=== PATIENT | male | born 1930 | race Caucasian/White ===

== ENCOUNTER 2017-09-21 11:56 | Emergency (ER) | payer OTHER ==
[2017-09-21 12:16] VITALS: BMI 16.1
--- NOTE | 2017-09-21 13:16 | PDOC ---
History of Present Illness - General History Source: Patient Exam Limitations: No Limitations - History of Present Illness Initial Comments: 09/21/17 13:35 The patient is an 87 year old male with history of chronic lower back pain secondary to herniated discs sent to the ED by his PCP for approximately 3-4 weeks of bilateral lower extremity swelling and pain. He describes his pain as sharp, intermittent, and worst at the calves and shins. He states his symptoms are worse at night. No chest pain or shortness of breath. No nausea, vomiting, or diaphoresis. No fever or chills. No numbness or tingling. PCP: Dr. Roland Johns <Annalisa Edgar - Last Filed: 09/21/17 13:46> <Christiano Hernandez - Last Filed: 09/22/17 10:00> <Bess Rayo - Last Filed: 09/24/17 18:27> - General Chief Complaint: Pain, Acute Stated Complaint: LEG PAIN Time Seen by Provider: 09/21/17 12:04 Past History <Annalisa Edgar - Last Filed: 09/21/17 13:46> <Christiano Hernandez - Last Filed: 09/22/17 10:00> - Past Medical History COPD: No Other medical history: pt. is poor historian - Immunization History Immunization Up to Date: Yes - Suicide/Smoking/Psychosocial Hx Smoking History: Former smoker Have you smoked in the past 12 months: No Information on smoking cessation initiated: No Hx Alcohol Use: No Drug/Substance Use Hx: No <Bess Rayo - Last Filed: 09/24/17 18:27> - Past Medical History Allergies/Adverse Reactions: Allergies Allergy/AdvReac Type Severity Reaction Status Date / Time No Known Allergies Allergy Verified 09/21/17 12:16 Home Medications: Ambulatory Orders Unobtainable [Unobtainable] 09/21/17 Review of Systems - Review of Systems Able to Perform ROS?: Yes Comments:: 09/21/17 13:43 GENERAL/CONSTITUTIONAL: No fever or chills. No weakness. HEAD, EYES, EARS, NOSE AND THROAT: No change in vision. No ear pain or discharge. No sore throat. CARDIOVASCULAR: Bilateral lower extremity swelling. No chest pain or shortness of breath. RESPIRATORY: No cough, wheezing, or hemoptysis. GASTROINTESTINAL: No nausea, vomiting, diarrhea or constipation. GENITOURINARY: No dysuria, frequency, or change in urination. MUSCULOSKELETAL: Bilateral lower extremity pain. No neck or back pain. SKIN: No rash NEUROLOGIC: No headache, vertigo, loss of consciousness, or change in strength/ sensation. ENDOCRINE: No increased thirst. No abnormal weight change. HEMATOLOGIC/LYMPHATIC: No anemia, easy bleeding, or history of blood clots. ALLERGIC/IMMUNOLOGIC: No hives or skin allergy. <Annalisa Edgar - Last Filed: 09/21/17 13:46> *Physical Exam - Vital Signs Last Vital Signs Temp Pulse Resp BP Pulse Ox 98.2 F 74 18 142/70 98 09/21/17 12:11 09/21/17 12:11 09/21/17 12:11 09/21/17 12:11 09/21/17 12:11 <Annalisa Edgar - Last Filed: 09/21/17 13:46> - Vital Signs Last Vital Signs Temp Pulse Resp BP Pulse Ox 98.2 F 64 18 154/75 99 09/21/17 12:11 09/21/17 18:03 09/21/17 18:03 09/21/17 18:03 09/21/17 18:03 <Christiano Hernandez - Last Filed: 09/22/17 10:00> - Vital Signs Last Vital Signs Temp Pulse Resp BP Pulse Ox 98.2 F 74 18 142/70 98 09/21/17 12:11 09/21/17 12:11 09/21/17 12:11 09/21/17 12:11 09/21/17 12:11 - Physical Exam Comments: GENERAL: Awake, alert, and fully oriented, in no acute distress HEAD: No signs of trauma EYES: PERRLA, EOMI, sclera anicteric, conjunctiva clear ENT: Auricles normal inspection, hearing grossly normal, nares patent, oropharynx clear without exudates. Moist mucosa NECK: Normal ROM, supple, no lymphadenopathy, JVD, or masses LUNGS: Breath sounds equal, clear to auscultation bilaterally. No wheezes, and no crackles HEART: Regular rate and rhythm, normal S1 and S2, no murmurs, rubs or gallops ABDOMEN: Soft, nontender, normoactive bowel sounds. No guarding, no rebound. No masses EXTREMITIES: Normal range of motion, 2+ edema to BLE, to level of knees. No clubbing or cyanosis. No cords, erythema, or tenderness NEUROLOGICAL: Cranial nerves II through XII grossly intact. Normal speech, normal gait SKIN: Warm, Dry, normal turgor, no rashes or lesions noted. <Bess Rayo - Last Filed: 09/24/17 18:27> Heart Score/ECG Review - ECG Impressions Comment:: EKG read 14:29- NSR 67 bpm, no acute ST/T changes; +Q waves inf leads, V5 and V6 <Bess Rayo - Last Filed: 09/24/17 18:27> ED Treatment Course - LABORATORY CBC & Chemistry Diagram: 09/21/17 13:27 09/21/17 13:27 <Annalisa Edgar - Last Filed: 09/21/17 13:46> - LABORATORY CBC & Chemistry Diagram: 09/21/17 13:27 09/21/17 14:51 - ADDITIONAL ORDERS Additional order review: 09/21/17 13:27 RBC 3.95 L MCV 99.0 H MCHC 33.1 RDW 14.9 MPV 8.4 Neutrophils % 77.2 Lymphocytes % 16.0 Monocytes % 5.1 Eosinophils % 1.1 Basophils % 0.6 <Christiano Hernandez - Last Filed: 09/22/17 10:00> - LABORATORY CBC & Chemistry Diagram: 09/21/17 13:27 09/21/17 14:51 <Bess Rayo - Last Filed: 09/24/17 18:27> Medical Decision Making - Medical Decision Making 09/21/17 16:[address] Hernandez at shift change. Awaiting BNP, CMP. If wnl, will DC home. <Bess Rayo - Last Filed: 09/24/17 18:27> *DC/Admit/Observation/Transfer - Attestations Scribe Attestion: 09/21/17 13:44 Documentation prepared by Annalisa Edgar, acting as medical esthetician for Bess Rayo MD. <Annalisa Edgar - Last Filed: 09/21/17 13:46> <Christiano Hernandez - Last Filed: 09/22/17 10:00> <Bess Rayo - Last Filed: 09/24/17 18:27> Diagnosis at time of Disposition: Lower extremity edema - Discharge Dispostion Disposition: HOME Condition at time of disposition: Stable - Referrals Referrals: Roland Johns MD [Primary Care Provider] - - Patient Instructions Printed Discharge Instructions: DI for Peripheral Edema -- Bilateral - Post Discharge Activity
[2017-09-21 13:48] LABS: BASO % 0.6 % (0-2.0); EOS % 1.1 % (0-4.5); HEMATOCRIT 39.1 % (35.4-49); HEMOGLOBIN 12.9 GM/dL (11.7-16.9); MCH 32.8 pg (25.7-33.7); MCHC 33.1 g/dl (32.0-35.9); MEAN PLT VOLUME 8.4 fl (7.5-11.1); MONO % 5.1 % (3.8-10.2); NEUT % 77.2 % (42.8-82.8); PLATELET COUNT 168 K/MM3 (134-434); RBC 3.95 M/mm3 (4.00-5.60); RDW 14.9 % (11.9-15.9); WHITE BLOOD COUNT 5.6 K/mm3 (4.0-10.0)
--- NOTE | 2017-09-21 16:23 | EKG ---
Test Reason : Blood Pressure : / mmHG Vent. Rate : 067 BPM Atrial Rate : 067 BPM P-R Int : 200 ms QRS Dur : 086 ms QT Int : 400 ms P-R-T Axes : 081 074 086 degrees QTc Int : 422 ms NORMAL SINUS RHYTHM NORMAL ECG WHEN COMPARED WITH ECG OF 22-JAN-2005 14:22, NO SIGNIFICANT CHANGE WAS FOUND Confirmed by MD HERO, STEFANY ([id number]) on 09/21/2017 4:22:42 PM Referred By: Confirmed By:STEFANY MONAHAN MD
[2017-09-21 16:41] LABS: ANION GAP 6 (8-16); BILIRUBIN,TOTAL 0.2 mg/dL (0.2-1.0); BLOOD UREA NITROGEN 18 mg/dL (7-18); CALCIUM 7.7 mg/dL (8.5-10.1); CHLORIDE 105 mmol/L (98-107); CO2 28 mmol/L (21-32); CREATININE 0.7 mg/dL (0.7-1.3); GLUCOSE,RANDOM 73 mg/dL (74-106); POTASSIUM 4.3 mmol/L (3.5-5.1); SGOT/AST 33 U/L (15-37); SGPT/ALT 27 U/L (12-78); SODIUM 139 mmol/L (136-145); TOT PROT 6.2 g/dl (6.4-8.2)
[2017-09-21 16:43] LABS: ALK PHOS 100 U/L (45-117); N-TERMINAL BNP 341.12 pg/ml (5-450)
[2017-09-22 11:44] VITALS: BP 159/74; PULSE 70; TEMP 98
== END 2017-09-22 12:15 | disposition home or self-care (01) ==
LOC: JER 11:56
DX: R60.0 Localized edema (principal); Z87.891 Personal history of nicotine dependence
CPT/HCPCS: 36415; 80053; 82550; 82553; 83880; 84484; 85025; 93005; 93010; 93970-TC; 99283-25

== ENCOUNTER 2017-11-12 11:29 | Inpatient (IN) | payer OTHER ==
--- NOTE | 2017-11-12 11:54 | PDOC ---
History of Present Illness - General Chief Complaint: Injury Stated Complaint: FALL Time Seen by Provider: 11/12/17 11:53 - History of Present Illness Initial Comments: 11/12/17 12:33 The patient is an 87 year old who is unaware of any PMH who presents for evaluation of left hip pain following a fall. The patient reports that he slipped 1 week ago while with his home health aid and fell onto his left hip with immediate pain. He denies head trauma, LOC, chest pain, palpitations at the time of the event, but notes he has been unable to ambulate since the fall prompting his presentation to the ED for evaluation. He otherwise denies fevers , chills, SOB, chest pain, abdominal pain, nausea, vomiting, or changes with urination or bowel movements. Past History - Past Medical History Allergies/Adverse Reactions: Allergies Allergy/AdvReac Type Severity Reaction Status Date / Time No Known Allergies Allergy Verified 09/21/17 12:16 Home Medications: Ambulatory Orders Unobtainable [Unobtainable] 09/21/17 COPD: No - Surgical History Cardiac Surgery: No Gastric Stapling: No Neurologic Surgery: No - Immunization History Immunization Up to Date: Yes - Suicide/Smoking/Psychosocial Hx Smoking History: Unknown if ever smoked Have you smoked in the past 12 months: No Information on smoking cessation initiated: No Hx Alcohol Use: No Drug/Substance Use Hx: No Review of Systems - Review of Systems Comments:: 11/12/17 12:42 Constitutional: No fevers, chills, fatigue, malaise HEENT: No Rhinorrhea, nasal congestion, visual changes Cardiovascular: No chest pain, syncope, palpitations, lightheadedness Respiratory: No Cough, SOB, Hemoptysis, Gastrointestinal: No Abdominal pain, Nausea, Vomiting, Constipation, Diarrhea, Melena Genitourinary: No Dysuria, Frequency, Urgency, Hesitancy, Hematuria, Flank pain Musculoskeletal: Left Hip Pain. No Myalgia, arthralgia Skin: No rashes, itching, bruising, pallor Neurologic: No Headache, Dizziness, Numbness, Weakness, or Tingling Psychiatric: No Hallucinations. No SI or HI *Physical Exam - Vital Signs Last Vital Signs Temp Pulse Resp BP Pulse Ox 98.9 F 82 16 137/68 98 11/12/17 11:39 11/12/17 11:39 11/12/17 11:39 11/12/17 11:39 11/12/17 11:39 - Physical Exam Comments: 11/12/17 12:43 General Appearance: Nourished. No Apparent Distress HEENT: EOMI, NAH. No obvious signs of head trauma. No Pharyngeal Erythema, Tonsillar Exudate, Tonsillar Erythema Neck: No Cervical Lymphadenopathy or C-spine Tenderness Respiratory/Chest: Lungs Clear, Normal Breath Sounds. No Crackles, Rales, Rhonchi, Wheezing Cardiovascular: Regular Rhythm, Regular Rate. No Murmur, Gallops, Rubs Gastrointestinal/Abdominal: Normal Bowel Sounds, Soft. No Guarding, Rebound, Tenderness Musculoskeletal: No CVA Tenderness Extremity: Left Lower Extremity is Shortened and Externally Rotated with notable eccymohsis to the inner aspect of the left thigh and tenderness to palpation along the left hip. 2+ dp pulses distally bilaterally with sensation to light touch and temperature intact bilaterally. Normal Capillary Refill Integumentary: Normal Color, Dry, Warm Neurologic: movie machine operator II-XII NML intact, Fully Oriented, Alert, Normal Mood/Affect, Normal Response, Motor Strength 5/5. ED Treatment Course - LABORATORY CBC & Chemistry Diagram: 11/12/17 12:00 11/12/17 12:00 Medical Decision Making - Medical Decision Making 11/12/17 12:45 The patient is an 87 year old who is unaware of any PMH who presents for evaluation of left hip pain following a fall. Differential includes but is not limited to: Fracture, Dislocation, Intracranial process, Contusion, ACS, Infectious, Metabolic Derangement. Given the patient's physical exam, it is possible the patient has a left hip fracture. Given that the patient is somewhat a poor historian, we will obtain a cbc, cmp, coags, troponin, ekg, chest plain film, head ct, hip and pelvis plain film to evaluate further. We will treat the patient's pain with morphine in the meantime and continue to monitor and reassess while here in the ED. 11/12/17 17:06 CBC, cmp, troponin, coags are unremarkable. head CT is unremarkable as read by our radiologist. Plain film of the patient's hip demonstrates an comminuted intratrochanteric fracture of the left hip as read by our radiologist. We discussed the case with the orthopedist team who will come evaluate the patient. We discussed the case with the hospitalist team who accepted the patient for admission. *DC/Admit/Observation/Transfer Diagnosis at time of Disposition: Closed left hip fracture Qualifiers: Encounter type: initial encounter Qualified Code(s): S72.002A - Fracture of unspecified part of neck of left femur, initial encounter for closed fracture - Discharge Dispostion Condition at time of disposition: Stable Admit: Yes - Referrals - Patient Instructions - Post Discharge Activity
--- NOTE | 2017-11-12 12:15 | PDOC ---
Attending Attestation - HPI HPI: 11/12/17 12:26 The patient is a 87 year old male, with no significant PMH, who presents to the emergency department for evaluation s/p witnessed fall 1 week ago. The patient states he has a lot of work being done in his apartment and he slipped on dust last Wednesday (1 week ago), witnessed by the home health aide, landing on his left hip. The patient denies any head strike/injury or loss of consciousness. The patient denies any preceding chest pain, shortness of breath, nausea, lightheadedness or blurry vision. The patient states he has not been able to ambulate since the fall. The patient states he only has the left hip pain when he is moving. The patient states his home health aide prompted him to come to the ED today. The patient denies chest pain, shortness of breath, headache and dizziness. Denies neck pain, back pain, bowel or bladder incontinence. Denies numbness, tingling, or loss of sensation. Denies fever, chills, nausea, vomit, diarrhea and constipation. Denies dysuria, frequency, urgency and hematuria. Allergies: NKA - Physicial Exam PE: 11/12/17 14:23 Vitals: Triage vital signs reviewed General Appearance: No acute distress, well nourished, well developed Head: Atraumatic Eyes: Pupils equal reactive round, extraocular movement intact Ears: TM's normal bilaterally Nose: Nares patent bilaterally; no nasal congestion Throat: Posterior oropharynx without erythema, mucous membranes moist Neck: Supple; No nuchal rigidity Chest Wall: Nontender Cardiac: Regular rate and rhythm, no murmurs, no rubs, no gallops Lungs: Clear to auscultation bilateral, good air movement bilaterally Abdomen: Soft, nondistended, normal bowel sounds, nontender to palpation Rectal: Exam deferred Extremities: (+) Left hip tenderness to palpation. No cyanosis, clubbing, or edema. Skin: Warm and dry, no rashes or lesions, no rash, no petechiae Neuro: AOX3; Cranial Nerves 2-12 grossly intact, Strength intact to all extremities, Sensation intact to all extremities. Psych: Normal mood, normal affect - Medical Decision Making 11/12/17 12:28 The patient is a 87 year old male, with no significant PMH, who presents to the emergency department for evaluation s/p witnessed fall 1 week ago. Plan: Labs, EKG, Head CT without contrast, Medications, Chest x-ray, left hip and pelvis x-ray Documentation prepared by Geremias Turcios, acting as medical record specialist for Dyllan Noel MD. <Geremias Turcios - Last Filed: 11/12/17 14:23> - Resident Resident Name: Jerrod Jiménezel - ED Attending Attestation I have performed the following: I have examined & evaluated the patient, The case was reviewed & discussed with the resident, I agree w/resident's findings & plan, Exceptions are as noted - Medical Decision Making Left comminuted displaced intertrochanteric hip fracture. Orthopedic aware. Patient made nothing by mouth. IV pain medicines given. We will admit to medicine for further management preoperative clearance prior to surgery. <Dyllan Noel - Last Filed: 11/12/17 16:14>
[2017-11-12] MEDS ORDERED: morphine CARPU-JECT 4 MG/1 ML DISP.SYRIN IVPUSH ONE (12:18)
[2017-11-12] MEDS ORDERED: morphine CARPU-JECT 2 MG/1 ML DISP.SYRIN IM ONE (12:32)
[2017-11-12] MEDS ORDERED: morphine SULFATE 4 MG/ML VIAL ONE (12:36)
[2017-11-12 13:16] LABS: BASO % 0.5 % (0-2.0); EOS % 1.5 % (0-4.5); HEMATOCRIT 31.5 % (35.4-49); HEMOGLOBIN 10.5 GM/dL (11.7-16.9); LYMPH % 15.3 % (8-40); MCH 33.6 pg (25.7-33.7); MCHC 33.4 g/dl (32.0-35.9); MEAN CELL VOLUME 100.8 fl (80-96); MEAN PLT VOLUME 8.3 fl (7.5-11.1); NEUT % 75.7 % (42.8-82.8); PLATELET COUNT 163 K/MM3 (134-434); RBC 3.12 M/mm3 (4.00-5.60); RDW 15.1 % (11.9-15.9); WHITE BLOOD COUNT 5.8 K/mm3 (4.0-10.0)
[2017-11-12 13:30] LABS: INR 1.1 (0.82-1.09); PROTHROMBIN TIME (PATIENT) 12.4 SEC (9.7-13.0)
[2017-11-12 13:43] LABS: ALBUMIN 2.7 g/dl (3.4-5.0); ANION GAP 6 (8-16); BILIRUBIN,TOTAL 0.4 mg/dL (0.2-1.0); BLOOD UREA NITROGEN 20 mg/dL (7-18); CHLORIDE 107 mmol/L (98-107); CO2 29 mmol/L (21-32); CREATININE 0.6 mg/dL (0.7-1.3); GLUCOSE,RANDOM 98 mg/dL (74-106); POTASSIUM 4.8 mmol/L (3.5-5.1); SGOT/AST 35 U/L (15-37); SGPT/ALT 26 U/L (12-78); SODIUM 142 mmol/L (136-145); TOT PROT 6.2 g/dl (6.4-8.2)
[2017-11-12 13:46] LABS: ALK PHOS 82 U/L (45-117)
[2017-11-12] MEDS ORDERED: SODIUM CHLORIDE 1,000 ML IV SCH (14:30)
--- NOTE | 2017-11-12 14:58 | CONSULT ---
Consult - text type - Consultation Consultation Note: FULL CONSULT DICTATED IMP: LEFT IT HIP FX PLAN: PATIENT REFUSES SURGERY FOR NOW
--- NOTE | 2017-11-12 15:14 | HP ---
CHIEF COMPLAINT: left hip pain PCP: none Important phone numbers of home care agency staff [facility] Lian Owens, social work program coordinator [phone] Ritika, Primary nurse at [facility] [phone]. HISTORY OF PRESENT ILLNESS: Patient is an 87 year old cachectic male with no reported past medical history. He presents to the ED for left hip pain after a mechanical fall one week ago on WednesdayNovember 05. at his home residence. The patient reports that he tripped and fell and landed on his left hip. This fall was witnessed by his home health aide. Patient denies any chest pain, dizziness or shortness of breath prior to falling. Since that time, patient has been bed bound and refusing to come to the ER for evaluation. Today, the left hip pain became so severe and at the repeated request of his INKER MACHINE and home care agency, patient came to the ER. Patient denies any head trauma or LOC. On exam, patient is laying in the bed, in no acute distress. He states his left hip only hurts with movement. In the last week, he has been bedbound, and unable to perform any ADLs secondary to his left hip pain. He is under the service of [facility] who was present at the bedside when I evaluated the patient. Dr. Flynn and patient's primary RN were also present. We spoke to the patient and made him aware that his left hip is fracture and in need of surgical repair today. Patient is refusing surgical repair of his left hip at this time. He has adamantly refused despite speaking with the entire team at the bedside. Patient is mostly french speaking and I attempted to speak to him in french to assure him that the surgery was necessary and will help him eventually ambulate as he us unable to currently do so. He continues to refuse and became agitated at myself and others. I have asked the patient to reconsider surgery, possibly for Wednesday. ER course was notable for: (1) left hip fracture (2) EKG NSR (3) trop 0.02 PAST MEDICAL HISTORY: denies PAST SURGICAL HISTORY: denies Social History: Smoking: n/a Alcohol: n/a Drugs: n/a Family History: Allergies No Known Allergies Allergy (Verified 09/21/17 12:16) HOME MEDICATIONS: Home Medications Medication Instructions Recorded Unobtainable [Unobtainable] 09/21/17 PHYSICAL EXAMINATION Vital Signs - 24 hr 11/12/17 11/12/17 11:39 14:57 Temperature 98.9 F 98.2 F Pulse Rate 82 Pulse Rate [ 86 Left Apical] Respiratory 16 16 Rate Blood Pressure 137/68 Blood Pressure 145/83 [Left Arm] O2 Sat by Pulse 98 98 Oximetry (%) GENERAL: Awake, alert, and fully oriented, in no acute distress, french speaking only HEAD: Normal with no signs of trauma. EYES: Pupils equal, round and reactive to light, extraocular movements intact, sclera anicteric, conjunctiva clear. No lid lag. EARS, NOSE, THROAT: Ears normal, nares patent, oropharynx clear without exudates. Moist mucous membranes. NECK: Normal range of motion, supple without lymphadenopathy, JVD, or masses. LUNGS: Breath sounds equal, clear to auscultation bilaterally. No wheezes, and no crackles. No accessory muscle use. HEART: Regular rate and rhythm, normal S1 and S2 without murmur, rub or gallop. ABDOMEN: Soft, nontender, not distended, normoactive bowel sounds, no guarding, no rebound, no masses. No hepatomegaly or splenomegaly. MUSCULOSKELETAL: Normal range of motion at all joints. No bony deformities or tenderness. No CVA tenderness. UPPER EXTREMITIES: No clubbing. No peripheral edema. LOWER EXTREMITIES: No peripheral edema, left hip with external rotation NEUROLOGICAL: Normal speech. Laboratory Results - last 24 hr 11/12/17 11/12/17 11/12/17 12:00 12:00 12:00 WBC 5.8 RBC 3.12 L D Hgb 10.5 L D Hct 31.5 L D MCV 100.8 H MCH 33.6 MCHC 33.4 RDW 15.1 Plt Count 163 MPV 8.3 Neutrophils % 75.7 Lymphocytes % 15.3 Monocytes % 7.0 Eosinophils % 1.5 Basophils % 0.5 PT with INR 12.40 INR 1.10 Sodium 142 Potassium 4.8 Chloride 107 Carbon Dioxide 29 Anion Gap 6 L BUN 20 H Creatinine 0.6 L Creat Clearance w eGFR > 60 Random Glucose 98 D Calcium 8.0 L Total Bilirubin 0.4 D AST 35 ALT 26 Alkaline Phosphatase 82 Creatine Kinase 234 Creatine Kinase Index 1.2 CK-MB (CK-2) 2.865 Troponin I 0.02 Total Protein 6.2 L Albumin 2.7 L ASSESSMENT/PLAN: Patient is an 87 year old cachectic male with no reported past medical history. He presents to the ED for left hip pain after a mechanical fall one week ago on WednesdayNovember 05. at his home residence. The patient reports that he tripped and fell and landed on his left hip. This fall was witnessed by his home health aide. Patient denies any chest pain, dizziness or shortness of breath prior to falling. Since that time, patient has been bed bound and refusing to come to the ER for evaluation. Today, the left hip pain became so severe and at the repeated request of his INKER MACHINE and home care agency, patient came to the ER. Patient denies any head trauma or LOC. On exam, patient is laying in the bed, in no acute distress. He states his left hip only hurts with movement. In the last week, he has been bedbound, and unable to perform any ADLs secondary to his left hip pain. He is under the service of [facility] who was present at the bedside when I evaluated the patient. Dr. Flynn and patient's primary RN were also present. We spoke to the patient and made him aware that his left hip is fracture and in need of surgical repair today. Patient is refusing surgical repair of his left hip at this time. He has adamantly refused despite speaking with the entire team at the bedside. Patient is mostly french speaking and I attempted to speak to him in french to assure him that the surgery was necessary and will help him eventually ambulate as he us unable to currently do so. He continues to refuse and became agitated at myself and others. I have asked the patient to reconsider surgery, possibly for Wednesday. Ortho: Left hip fracture s/p fall Patient refusing surgical repair at this time Manage pain with Morphine prn Heparin TID Ortho following, possible surgery on Wednesday if patient consents PT evaluation once cleared by ortho Bowel regimen F.E.N. Fluids: NS @ 100cc/hr Electrolytes: monitor Nutrition: regular diet, RD consult for cachexia Prophylaxis DVT: Heparin TID GI: Protonix daily Disposition: full code Hospitalist Screening - Colonoscopy Questionnaire Colonoscopy Questionnaire: Colonoscopy Questionnaire
--- NOTE | 2017-11-12 15:58 | CONS ---
DATE OF CONSULTATION: 11/12/2017 ORTHOPEDICS CONSULTATION/[facility] HISTORY OF PRESENT ILLNESS: Patient is an 87-year-old male status post fall 1 week ago and found by forensic social worker on the floor on Wednesday. Patient refused to come to the emergency room, was put into bed, finally forensic social worker were able to convince him that he needs to come to the hospital, and an ambulance brought him to the hospital. The patient has no family. No significant past medical history as reported by forensic social worker patient services representative. PHYSICAL EXAMINATION: Patient has an externally rotated left leg with marked increased pain with range of motion of the hip, good range of motion in the ankle and toes. X-rays taken in the emergency room show a left intratrochanteric hip fracture. IMPRESSION: Left intratrochanteric hip fracture. Risks, benefits, and alternatives discussed with patient . Patient adamantly refuses that surgery. I tested him to the best of my ability if he is alert and oriented, and on my exam he is, and though adamantly refuses to have operative intervention. Therefore at this time cancelled the surgery that we were about to do for him, the OR had been prepared and ready to go today have the surgery before the weekend. Patient wants to think about it for a few days and make a decision. follow him closely over the next few days and treat him accordingly. ANDREAS CHANG M.D. [id number]
[2017-11-12] MEDS ORDERED: morphine SULFATE 4 MG/ML VIAL IVPUSH PRN (16:24)
[2017-11-12 18:23] VITALS: BMI 16.9
[2017-11-12] MEDS: HEPARIN NA (PORCINE) 5,000 UNITS/ML 1ML VIAL SQ SCH (21:23)
[2017-11-12] MEDS: DOCUSATE SODIUM 100 MG CAPSULE (FP) PO SCH (21:24)
[2017-11-13] MEDS: DOCUSATE SODIUM 100 MG CAPSULE (FP) PO SCH ×3 (06:04→21:40)
[2017-11-13] MEDS: HEPARIN NA (PORCINE) 5,000 UNITS/ML 1ML VIAL SQ SCH ×2 (09:57→21:40)
[2017-11-13 10:02] LABS: HEMATOCRIT 31.1 % (35.4-49); HEMOGLOBIN 10.5 GM/dL (11.7-16.9); MCH 33.9 pg (25.7-33.7); MCHC 33.8 g/dl (32.0-35.9); MEAN CELL VOLUME 100.2 fl (80-96); MEAN PLT VOLUME 8.9 fl (7.5-11.1); PLATELET COUNT 168 K/MM3 (134-434); RDW 14.8 % (11.9-15.9); WHITE BLOOD COUNT 5.3 K/mm3 (4.0-10.0)
--- NOTE | 2017-11-13 11:37 | PN ---
Physical Exam: SUBJECTIVE: Patient seen and examined at the bedside. He is Guamanian speaking primarily. Tells me he does NOT want to have his left hip repaired. States that he has had surgery of his left hip in the past with pins and has had a bad experience with anesthesia. Does not fully elaborate on what happened with anesthesia but states he had severe hiccups afterward. Again, spoke to him about the importance of having left hip repair so that he can mobilize again and not be in pain. He is adamantly refusing. He is alert and oriented x 3, has decisional capacity. Tells me that I cannot make him get surgery, and he is correct, I cannot. I can only advise him to do what is best so that he can ambulate. Told him I want the best for him, and not here to pressure him or make him do something that he does not want to. I do strongly recommend surgery but he is refusing to consent. OBJECTIVE: Vital Signs Period Temp Pulse Resp BP Sys/Iglesias Pulse Ox Last 24 Hr 98.2 F-99.1 F 60-86 16-20 114-145/53-83 97-98 GENERAL: Awake, alert, and fully oriented to person, place and time, in no acute distress, hungarian speaking only. HEAD: Normal with no signs of trauma. EYES: Pupils equal, round and reactive to light, extraocular movements intact, sclera anicteric, conjunctiva clear. No lid lag. EARS, NOSE, THROAT: Ears normal, nares patent, oropharynx clear without exudates. Moist mucous membranes. NECK: Normal range of motion, supple without lymphadenopathy, JVD, or masses. LUNGS: Breath sounds equal, clear to auscultation bilaterally. No wheezes, and no crackles. No accessory muscle use. HEART: Regular rate and rhythm, normal S1 and S2 without murmur, rub or gallop. ABDOMEN: Soft, nontender, not distended, normoactive bowel sounds, no guarding, no rebound, no masses. No hepatomegaly or splenomegaly. MUSCULOSKELETAL: Normal range of motion at all joints. No bony deformities or tenderness. No CVA tenderness. UPPER EXTREMITIES: No clubbing. No peripheral edema. LOWER EXTREMITIES: No peripheral edema, left hip with external rotation, painful to touch of left hip. NEUROLOGICAL: Normal speech Laboratory Results - last 24 hr 11/12/17 11/12/17 11/12/17 12:00 12:00 12:00 WBC 5.8 RBC 3.12 L D Hgb 10.5 L D Hct 31.5 L D MCV 100.8 H MCH 33.6 MCHC 33.4 RDW 15.1 Plt Count 163 MPV 8.3 Neutrophils % 75.7 Lymphocytes % 15.3 Monocytes % 7.0 Eosinophils % 1.5 Basophils % 0.5 PT with INR 12.40 INR 1.10 Sodium 142 Potassium 4.8 Chloride 107 Carbon Dioxide 29 Anion Gap 6 L BUN 20 H Creatinine 0.6 L Creat Clearance w eGFR > 60 Random Glucose 98 D Hemoglobin A1c % Calcium 8.0 L Total Bilirubin 0.4 D AST 35 ALT 26 Alkaline Phosphatase 82 Creatine Kinase 234 Creatine Kinase Index 1.2 CK-MB (CK-2) 2.865 Troponin I 0.02 Total Protein 6.2 L Albumin 2.7 L Blood Type Antibody Screen 11/12/17 11/12/17 11/12/17 15:00 15:00 20:20 WBC RBC Hgb Hct MCV MCH MCHC RDW Plt Count MPV Neutrophils % Lymphocytes % Monocytes % Eosinophils % Basophils % PT with INR INR Sodium Potassium Chloride Carbon Dioxide Anion Gap BUN Creatinine Creat Clearance w eGFR Random Glucose Hemoglobin A1c % Calcium Total Bilirubin AST ALT Alkaline Phosphatase Creatine Kinase 242 Creatine Kinase Index 1.4 CK-MB (CK-2) 3.444 Troponin I < 0.02 Total Protein Albumin Blood Type A POSITIVE Antibody Screen Negative 11/13/17 11/13/17 11/13/17 07:35 09:50 09:50 WBC 5.3 RBC 3.10 L Hgb 10.5 L Hct 31.1 L MCV 100.2 H MCH 33.9 H MCHC 33.8 RDW 14.8 Plt Count 168 MPV 8.9 Neutrophils % Lymphocytes % Monocytes % Eosinophils % Basophils % PT with INR INR Sodium Potassium Chloride Carbon Dioxide Anion Gap BUN Creatinine Creat Clearance w eGFR Random Glucose Hemoglobin A1c % 5.5 Calcium Total Bilirubin AST ALT Alkaline Phosphatase Creatine Kinase Creatine Kinase Index CK-MB (CK-2) Troponin I < 0.02 Total Protein Albumin Blood Type Antibody Screen Active Medications Generic Name Dose Route Start Last Admin Trade Name Freq PRN Reason Stop Dose Admin Acetaminophen 650 mg 11/12/17 16:59 Tylenol - PO Q6H PRN PAIN LEVEL 4 - 6 Docusate Sodium 100 mg 11/12/17 22:00 11/13/17 06:04 Colace - PO 100 mg TID BALJINDER Administration Heparin Sodium (Porcine) 5,000 unit 11/12/17 22:00 11/13/17 09:57 Heparin - SQ 5,000 unit BID BALJINDER Administration Sodium Chloride 1,000 mls @ 75 mls/hr 11/12/17 14:30 11/12/17 14:35 Normal Saline - IV 75 mls/hr ASDIR BALJINDER Administration Lidocaine 1 patch 11/13/17 11:45 Lidoderm Patch - TP DAILY BALJINDER Miscellaneous 1 each 11/13/17 22:00 Lidoderm Patch Removal MC DAILY@2200 BALJINDER Morphine Sulfate 2 mg 11/12/17 16:24 Morphine Sulfate IVPUSH Q4H PRN PAIN LEVEL 7 - 10 ASSESSMENT/PLAN: Patient is an 87 year old cachectic male with no reported past medical history. He presents to the ED for left hip pain after a mechanical fall one week ago on WednesdayNovember 05. at his home residence. The patient reports that he tripped and fell and landed on his left hip. This fall was witnessed by his home health aide. Patient denies any chest pain, dizziness or shortness of breath prior to falling. Since that time, patient has been bed bound and refusing to come to the ER for evaluation. He presented to the ED on 11/12/2017 after the left hip pain became so severe and at the repeated request of his INSTRUCTIONAL TECHNOLOGY SPECIALIST. Patient denies any head trauma or LOC. On exam, patient is laying in the bed, in no acute distress. He states his left hip only hurts with movement. In the last week, he has been bedbound, and unable to perform any ADLs secondary to his left hip pain. Ortho: Left hip fracture s/p fall Patient refusing surgical repair at this time Manage pain with Morphine prn Lidoderm patch to left hip Heparin TID Ortho following, possible surgery on Wednesday if patient consents PT evaluation once cleared by ortho Bowel regimen F.E.N. Fluids: tolerating PO Electrolytes: monitor Nutrition: regular diet, RD consult for cachexia Prophylaxis DVT: Heparin TID GI: Protonix daily Important phone numbers of home care agency staff [facility] Home Care Lian Owens, 7th grade social studies teacher [phone] Ritika, Primary nurse at [facility] [phone]. Disposition: full code Visit type - Emergency Visit Emergency Visit: Yes ED Registration Date: 11/12/17 Care time: The patient presented to the Emergency Department on the above date and was hospitalized for further evaluation of their emergent condition. - New Patient This patient is new to me today: No - Critical Care Critical Care patient: No - Discharge Referral Referred to [facility] No
[2017-11-13 12:00] LABS: ALBUMIN 2.6 g/dl (3.4-5.0); ANION GAP 8 (8-16); BILIRUBIN,TOTAL 0.4 mg/dL (0.2-1.0); BLOOD UREA NITROGEN 19 mg/dL (7-18); CALCIUM 7.8 mg/dL (8.5-10.1); CHLORIDE 106 mmol/L (98-107); CO2 27 mmol/L (21-32); CREATININE 0.7 mg/dL (0.7-1.3); GLUCOSE,RANDOM 94 mg/dL (74-106); POTASSIUM 4.7 mmol/L (3.5-5.1); SGOT/AST 30 U/L (15-37); SGPT/ALT 24 U/L (12-78); SODIUM 141 mmol/L (136-145); TOT PROT 5.9 g/dl (6.4-8.2)
[2017-11-13 12:01] LABS: ALK PHOS 83 U/L (45-117)
[2017-11-13 12:41] LABS: CHOLESTEROL 114 mg/dL (50-200); HDL CHOLESTEROL 46 mg/dL (40-60); TRIGLYCERIDES 60 mg/dL (35-160)
--- NOTE | 2017-11-13 13:19 | PN ---
Progress Note (short form) - Note Progress Note: Ortho Pt seen and examined s/p left IT fx. still deciding if he would like to proceed with surgery PE- + ttp, LLE shortened and ER, decr rom secondary to pain, nvi a/p NWB Pt needs to decide if he wants surgery Please notify us if he wishes to have surgery otherwise pt can be d/c'd d/w Dr. Flynn
[2017-11-13] MEDS: LIDOCAINE 5% TOPICAL PATCH TP SCH (13:30)
--- NOTE | 2017-11-13 14:37 | EKG ---
Test Reason : Blood Pressure : / mmHG Vent. Rate : 077 BPM Atrial Rate : 077 BPM P-R Int : 188 ms QRS Dur : 082 ms QT Int : 358 ms P-R-T Axes : 088 069 086 degrees QTc Int : 405 ms NORMAL SINUS RHYTHM NORMAL ECG WHEN COMPARED WITH ECG OF 21-SEP-2017 14:16, T WAVE INVERSION NO LONGER EVIDENT IN ANTERIOR LEADS Confirmed by MD Ronaldo, Jeffrey ([id number]) on 11/13/2017 2:36:47 PM Referred By: Confirmed By:Jeffrey Higgins MD
[2017-11-13 17:37] LABS: URINE APPEARANCE CLEAR; URINE BILIRUBIN NEGATIVE (<2.0 mg/dL); URINE COLOR STRAW; URINE GLUCOSE (UA) NEGATIVE (NEGATIVE); URINE KETONE NEGATIVE (NEGATIVE); URINE LEUK ESTERASE NEGATIVE (NEGATIVE); URINE NITRITE NEGATIVE (NEGATIVE); URINE PROTEIN NEGATIVE (NEGATIVE); URINE UROBILINOGEN NEGATIVE mg/dL (0.2-1.0)
[2017-11-13] MEDS: LIDOCAINE PATCH REMOVAL MC SCH (21:41)
[2017-11-14] MEDS: DOCUSATE SODIUM 100 MG CAPSULE (FP) PO SCH ×3 (06:03→22:49)
[2017-11-14 09:58] LABS: BASO % 0.5 % (0-2.0); EOS % 1.4 % (0-4.5); HEMATOCRIT 35.6 % (35.4-49); LYMPH % 20.2 % (8-40); MCH 33.7 pg (25.7-33.7); MCHC 33.7 g/dl (32.0-35.9); MEAN CELL VOLUME 99.9 fl (80-96); MEAN PLT VOLUME 8.2 fl (7.5-11.1); MONO % 5.8 % (3.8-10.2); NEUT % 72.1 % (42.8-82.8); PLATELET COUNT 209 K/MM3 (134-434); RBC 3.56 M/mm3 (4.00-5.60); RDW 14.6 % (11.9-15.9); WHITE BLOOD COUNT 6.6 K/mm3 (4.0-10.0)
[2017-11-14 10:05] LABS: ALBUMIN 2.7 g/dl (3.4-5.0); ANION GAP 5 (8-16); BILIRUBIN,TOTAL 0.6 mg/dL (0.2-1.0); BLOOD UREA NITROGEN 16 mg/dL (7-18); CALCIUM 7.9 mg/dL (8.5-10.1); CHLORIDE 104 mmol/L (98-107); CO2 30 mmol/L (21-32); CREATININE 0.6 mg/dL (0.7-1.3); GLUCOSE,RANDOM 90 mg/dL (74-106); MAGNESIUM 2.1 mg/dL (1.8-2.4); SGOT/AST 30 U/L (15-37); SGPT/ALT 24 U/L (12-78); SODIUM 139 mmol/L (136-145); TOT PROT 6.6 g/dl (6.4-8.2)
[2017-11-14 10:06] LABS: ALK PHOS 109 U/L (45-117)
[2017-11-14] MEDS: HEPARIN NA (PORCINE) 5,000 UNITS/ML 1ML VIAL SQ SCH ×2 (10:10→22:49)
[2017-11-14] MEDS: LIDOCAINE 5% TOPICAL PATCH TP SCH (10:10)
[2017-11-14] MEDS: ACETAMINOPHEN 325 MG TABLET (FP) PO PRN ×2 (10:11→22:49)
--- NOTE | 2017-11-14 14:28 | PN ---
Progress Note (short form) - Note Progress Note: Ortho Pt seen and examined s/p left IT fx. Pt is not consenting for surgery PE- + ttp, LLE shortened and ER, decr rom secondary to pain, nvi a/p NWB d/c from ortho pov since pt does not want to have surgery- Risks were explained in detail to the patient d/w Dr. Flynn
--- NOTE | 2017-11-14 18:50 | CON.PSY ---
Psychiatry Consult Chief Complaint: Asked to see to assist in his care with regard to pending surgery. History of Present Problem: Patient states that he is not having surgery but did not articulate why he is making that decision. Nor, was he able to say how he can benefit from this surgery. He is adamant about not having this surgery. - Reason for Previous Treatment Reason for Previous Treatment: Other (Frequent falls.) - Current Medications Current Medications: Active Medications Acetaminophen (Tylenol -) 650 mg PO Q6H PRN PRN Reason: PAIN LEVEL 4 - 6 Last Admin: 11/14/17 10:11 Dose: 650 mg Docusate Sodium (Colace -) 100 mg PO TID [facility] Last Admin: 11/14/17 14:35 Dose: Not Given Heparin Sodium (Porcine) (Heparin -) 5,000 unit SQ BID [facility] Last Admin: 11/14/17 10:10 Dose: 5,000 unit Lidocaine (Lidoderm Patch -) 1 patch TP DAILY [facility] Last Admin: 11/14/17 10:10 Dose: 1 patch Miscellaneous (Lidoderm Patch Removal) 1 each MC DAILY@2200 [facility] Last Admin: 11/13/17 21:41 Dose: 1 each Morphine Sulfate (Morphine Sulfate) 2 mg IVPUSH Q4H PRN PRN Reason: PAIN LEVEL 7 - 10 - Allergies Allergies: Allergies Allergy/AdvReac Type Severity Reaction Status Date / Time No Known Allergies Allergy Verified 09/21/17 12:16 - Current Living Status Usual Living Arrangement: Alone (with Home health healthcare management) - Current Mental Status Evaluation Appearance: Other (Appropriate for hospital setting) Attitude: Guarded - Affect Affect: Constrictive Appropriateness: Appropriate to Content - Mood Mood: Anxious, Irritable - Speech/Language Expressive: Talkative - Psychomotor Activity Psychomotor Activity: Normal - Thought Content Hallucinations: Absent Delusions: Absent - Self Perception Self Perception: No Impairment - Cognition Attention: Diminished Orientation: Time, Person, Place Memory, Short Term: 1/3 Memory, Remote with Promptin/3 (not cooperative with further exam) - Abstraction Judgement: Severely Impaired - Insight Insight: Impaired - Suicidal Ideation Suicidal Ideation: No - Homicidal Ideation Homicidal Ideation: No Assessment/Plan Patient was not cooperative during this interview capacity to make decisions at this time. During the interview, his thinking was disorganized with circumstantial disorganized speech. He lacks an understanding of his condition and the consequences of not having surgery. He could not tell me how he may benefit from the surgery. Based on the evaluation, he has diminished capacity at this time.
--- NOTE | 2017-11-14 19:16 | PN ---
Physical Exam: SUBJECTIVE: Patient seen and examined at the bedside. Both SW an process description writer met with patient and again went over the need for surgery, patient refusing. OBJECTIVE: As per psyche, patient has diminished capacity to make his own medical decisions. Vital Signs Period Temp Pulse Resp BP Sys/Iglesias Pulse Ox Last 24 Hr 98.1 F-98.9 F 61-81 18-20 100-136/59-68 97-98 GENERAL: Awake, alert, and fully oriented to person, place and time, in no acute distress, samoan speaking only. HEAD: Normal with no signs of trauma. EYES: Pupils equal, round and reactive to light, extraocular movements intact, sclera anicteric, conjunctiva clear. No lid lag. EARS, NOSE, THROAT: Ears normal, nares patent, oropharynx clear without exudates. Moist mucous membranes. NECK: Normal range of motion, supple without lymphadenopathy, JVD, or masses. LUNGS: Breath sounds equal, clear to auscultation bilaterally. No wheezes, and no crackles. No accessory muscle use. HEART: Regular rate and rhythm, normal S1 and S2 without murmur, rub or gallop. ABDOMEN: Soft, nontender, not distended, normoactive bowel sounds, no guarding, no rebound, no masses. No hepatomegaly or splenomegaly. MUSCULOSKELETAL: Normal range of motion at all joints. No bony deformities or tenderness. No CVA tenderness. UPPER EXTREMITIES: No clubbing. No peripheral edema. LOWER EXTREMITIES: No peripheral edema, left hip with external rotation, painful to touch of left hip. NEUROLOGICAL: Normal speech Laboratory Results - last 24 hr 11/14/17 11/14/17 09:15 09:15 WBC 6.6 RBC 3.56 L Hgb 12.0 D Hct 35.6 MCV 99.9 H MCH 33.7 MCHC 33.7 RDW 14.6 Plt Count 209 D MPV 8.2 Neutrophils % 72.1 Lymphocytes % 20.2 D Monocytes % 5.8 Eosinophils % 1.4 Basophils % 0.5 Sodium 139 Potassium 4.0 Chloride 104 Carbon Dioxide 30 Anion Gap 5 L BUN 16 Creatinine 0.6 L Creat Clearance w eGFR > 60 Random Glucose 90 Calcium 7.9 L Magnesium 2.1 Total Bilirubin 0.6 D AST 30 ALT 24 Alkaline Phosphatase 109 D Total Protein 6.6 Albumin 2.7 L Active Medications Generic Name Dose Route Start Last Admin Trade Name Freq PRN Reason Stop Dose Admin Acetaminophen 650 mg 11/12/17 16:59 11/14/17 10:11 Tylenol - PO 650 mg Q6H PRN Administration PAIN LEVEL 4 - 6 Docusate Sodium 100 mg 11/12/17 22:00 11/14/17 14:35 Colace - PO Not Given TID BALJINDER Heparin Sodium (Porcine) 5,000 unit 11/12/17 22:00 11/14/17 10:10 Heparin - SQ 5,000 unit BID BALJINDER Administration Lidocaine 1 patch 11/13/17 11:45 11/14/17 10:10 Lidoderm Patch - TP 1 patch DAILY BALJINDER Administration Miscellaneous 1 each 11/13/17 22:00 11/13/17 21:41 Lidoderm Patch Removal MC 1 each DAILY@2200 BALJINDER Administration Morphine Sulfate 2 mg 11/12/17 16:24 Morphine Sulfate IVPUSH Q4H PRN PAIN LEVEL 7 - 10 ASSESSMENT/PLAN: Patient is an 87 year old cachectic male with no reported past medical history. He presents to the ED for left hip pain after a mechanical fall one week ago on WednesdayNovember 05. at his home residence. The patient reports that he tripped and fell and landed on his left hip. This fall was witnessed by his home health aide. Patient denies any chest pain, dizziness or shortness of breath prior to falling. Since that time, patient has been bed bound and refusing to come to the ER for evaluation. He presented to the ED on 11/12/2017 after the left hip pain became so severe and at the repeated request of his COMPLEX COMMERCIAL LITIGATION PAR[place]GAL. Patient denies any head trauma or LOC. On exam, patient is laying in the bed, in no acute distress. He states his left hip only hurts with movement. In the last week, he has been bedbound, and unable to perform any ADLs secondary to his left hip pain. Ortho: Left hip fracture s/p fall Patient refusing surgical repair at this time Manage pain with Morphine prn Lidoderm patch to left hip Heparin TID Ortho following, possible surgery on Wednesday if patient consents, however, deemed to have diminished capacity by psyche. F.E.N. Fluids: tolerating PO Electrolytes: monitor Nutrition: regular diet, RD consult for cachexia Prophylaxis DVT: Heparin TID GI: Protonix daily Important phone numbers of home care agency staff [facility] Lian Owens, child protective services social worker [phone] Ritika, Primary nurse at [facility] [phone]. Disposition: full code Visit type - Emergency Visit Emergency Visit: Yes ED Registration Date: 11/12/17 Care time: The patient presented to the Emergency Department on the above date and was hospitalized for further evaluation of their emergent condition. - New Patient This patient is new to me today: No - Critical Care Critical Care patient: No - Discharge Referral Referred to [facility] No
[2017-11-14] MEDS: LIDOCAINE PATCH REMOVAL MC SCH (22:51)
[2017-11-15] MEDS: DOCUSATE SODIUM 100 MG CAPSULE (FP) PO SCH ×3 (06:36→21:18)
[2017-11-15] MEDS: ACETAMINOPHEN 325 MG TABLET (FP) PO PRN (06:36)
[2017-11-15] MEDS: LIDOCAINE 5% TOPICAL PATCH TP SCH (09:24)
[2017-11-15] MEDS: HEPARIN NA (PORCINE) 5,000 UNITS/ML 1ML VIAL SQ SCH ×2 (09:24→21:18)
--- NOTE | 2017-11-15 09:54 | PN ---
Physical Exam: SUBJECTIVE: Patient seen and examined at the bedside. States left hip pain is controlled at the moment. OBJECTIVE: I called patient's primary nurse (Ritika) under home care services ([facility] home care ) and updated her on patient's status. She provided me with a phone number of patient's daughter > Jelena Yoo [phone] I attempted to reach daughter at this number, but phone is disconnected. Patent has friend listed a person to contact on [employer] (Josephine Salomon [phone]), called phone no. and HiPPA compliant message left, awaiting call back Left message for dIris Shaffer, psyche practitioner who saw patient yesterday asking her to come re-evaluate patient, awaiting call back. Patient has been deemed to have diminished capacity on psyche eval. He continues to refuse surgery Vital Signs Period Temp Pulse Resp BP Sys/Iglesias Pulse Ox Last 24 Hr 98.0 F-98.9 F 66-84 18-20 100-137/59-68 96 GENERAL: Awake, alert, and fully oriented to person, place and time, in no acute distress, yoruba speaking only. HEAD: Normal with no signs of trauma. EYES: Pupils equal, round and reactive to light, extraocular movements intact, sclera anicteric, conjunctiva clear. No lid lag. EARS, NOSE, THROAT: Ears normal, nares patent, oropharynx clear without exudates. Moist mucous membranes. NECK: Normal range of motion, supple without lymphadenopathy, JVD, or masses. LUNGS: Breath sounds equal, clear to auscultation bilaterally. No wheezes, and no crackles. No accessory muscle use. HEART: Regular rate and rhythm, normal S1 and S2 without murmur, rub or gallop. ABDOMEN: Soft, nontender, not distended, normoactive bowel sounds, no guarding, no rebound, no masses. No hepatomegaly or splenomegaly. MUSCULOSKELETAL: Normal range of motion at all joints. No bony deformities or tenderness. No CVA tenderness. UPPER EXTREMITIES: No clubbing. No peripheral edema. LOWER EXTREMITIES: No peripheral edema, left hip with external rotation, painful to touch of left hip. NEUROLOGICAL: Normal speech Laboratory Results - last 24 hr 11/14/17 11/14/17 09:15 09:15 WBC 6.6 RBC 3.56 L Hgb 12.0 D Hct 35.6 MCV 99.9 H MCH 33.7 MCHC 33.7 RDW 14.6 Plt Count 209 D MPV 8.2 Neutrophils % 72.1 Lymphocytes % 20.2 D Monocytes % 5.8 Eosinophils % 1.4 Basophils % 0.5 Sodium 139 Potassium 4.0 Chloride 104 Carbon Dioxide 30 Anion Gap 5 L BUN 16 Creatinine 0.6 L Creat Clearance w eGFR > 60 Random Glucose 90 Calcium 7.9 L Magnesium 2.1 Total Bilirubin 0.6 D AST 30 ALT 24 Alkaline Phosphatase 109 D Total Protein 6.6 Albumin 2.7 L Active Medications Generic Name Dose Route Start Last Admin Trade Name Freq PRN Reason Stop Dose Admin Acetaminophen 650 mg 11/12/17 16:59 11/15/17 06:36 Tylenol - PO 650 mg Q6H PRN Administration PAIN LEVEL 4 - 6 Docusate Sodium 100 mg 11/12/17 22:00 11/15/17 06:36 Colace - PO 100 mg TID BALJINDER Administration Heparin Sodium (Porcine) 5,000 unit 11/12/17 22:00 11/15/17 09:24 Heparin - SQ 5,000 unit BID BALJINDER Administration Lidocaine 1 patch 11/13/17 11:45 11/15/17 09:24 Lidoderm Patch - TP 1 patch DAILY BALJINDER Administration Miscellaneous 1 each 11/13/17 22:00 11/14/17 22:51 Lidoderm Patch Removal MC 1 each DAILY@2200 BALJINDER Administration Morphine Sulfate 2 mg 11/12/17 16:24 Morphine Sulfate IVPUSH Q4H PRN PAIN LEVEL 7 - 10 ASSESSMENT/PLAN: Patient is an 87 year old cachectic male with no reported past medical history. He presents to the ED for left hip pain after a mechanical fall one week ago on WednesdayNovember 05. at his home residence. The patient reports that he tripped and fell and landed on his left hip. This fall was witnessed by his home health aide. Patient denies any chest pain, dizziness or shortness of breath prior to falling. Since that time, patient has been bed bound and refusing to come to the ER for evaluation. He presented to the ED on 11/12/2017 after the left hip pain became so severe and at the repeated request of his PAIN MANAGEMENT NURSE PRACTITIONER. Patient denies any head trauma or LOC. On exam, patient is laying in the bed, in no acute distress. He states his left hip only hurts with movement. In the last week, he has been bedbound, and unable to perform any ADLs secondary to his left hip pain. Imaging: Left Hip/xray: Comminuted left femoral fracture with various deformities Vascular Study 09/21/17: No DVT Chest Xray: Partial compression of thoracic vertebral bodies, unclear age Ortho: Left hip fracture s/p fall Left Hip/pelvis Xray shows comminuted left femoral fracture with various deformities Patient refusing surgical repair at this time Manage pain with Morphine prn Lidoderm patch to left hip daily Heparin TID Ortho following, possible surgery if patient consents, however, deemed to have diminished capacity by psyche. Ethics consulted Attempted to call family (information provided by [facility] home healthcare, but phone no. disconnected) Asking Psyche to re-evaluate patient, awaiting callback F.E.N. Fluids: tolerating PO Electrolytes: monitor Nutrition: regular diet, RD consult for cachexia Prophylaxis DVT: Heparin TID GI: Protonix daily Important phone numbers of home care agency staff [facility] Home Care Lian Owens, nursing home social worker [phone] Ritika, Primary nurse at [facility] [phone]. Disposition: full code Visit type - Emergency Visit Emergency Visit: Yes ED Registration Date: 11/12/17 Care time: The patient presented to the Emergency Department on the above date and was hospitalized for further evaluation of their emergent condition. - New Patient This patient is new to me today: No - Critical Care Critical Care patient: No - Discharge Referral Referred to [facility] No
--- NOTE | 2017-11-15 18:33 | PN ---
Progress Note (short form) - Note Progress Note: Patient was seen again this pm with Floor CHAIRMAN & CEO, Tyree, He again adamantly refuse surgery and today with Samoan speaking CHAIRMAN & CEO, Tyree, he was able to relate the risk of not walking again, blood clots and even eventual . Even so, he does not want surgery. Patient was deemed able and have the capacity to make this decision regarding Hip Surgery
[2017-11-15] MEDS: LIDOCAINE PATCH REMOVAL MC SCH (21:17)
[2017-11-16] MEDS ORDERED: ADENOSINE 6 MG/2 ML VIAL IVPUSH ONE (04:46)
--- NOTE | 2017-11-16 05:24 | HOSP ---
Subjective - Review of Symptoms Events since last encounter: called to see pt for HR 140s Subjective: pt denies chest pain, palpitations, trouble breathing. Physical Examination Vital Signs: Vital Signs Temperature 98 F 11/16/17 04:15 Pulse Rate 147 H 11/16/17 04:15 Respiratory Rate 20 11/16/17 04:15 Blood Pressure 115/67 11/16/17 04:15 O2 Sat by Pulse Oximetry (%) 96 11/14/17 21:00 Cardiovascular: Yes: Regular Rate and Rhythm, Tachycardia, S1, S2 Respiratory: Yes: CTA Bilaterally Gastrointestinal: Yes: Normal Bowel Sounds, Soft Edema: No Labs: CBC, BMP 11/14/17 09:15 11/14/17 09:15 Hospitalist Encounter Assessment: SVT - eCG revealed SVT rate 148 - adenosine 6mg given IVP - pt converted to sinus sandra initially then in NSR rate in 80s. NO acute ST/ T wave changes - cardiac profile added to am labs. - ? concern for PE although pt otherwise asymptomatic - cardiology consult - transfer to tele Critical Care Total Critical Care Time (in minutes): 35 Critical Care Statement: The care of this patient involved high complexity decision making to prevent further life threatening deterioration of the patient 's condition and/or to evaluate & treat vital organ system(s) failure or risk of failure.
[2017-11-16 06:58] LABS: BASO % 0.6 % (0-2.0); EOS % 1.3 % (0-4.5); HEMATOCRIT 36.4 % (35.4-49); HEMOGLOBIN 12.4 GM/dL (11.7-16.9); LYMPH % 17.5 % (8-40); MCHC 34.1 g/dl (32.0-35.9); MEAN CELL VOLUME 99.8 fl (80-96); MEAN PLT VOLUME 8.3 fl (7.5-11.1); MONO % 6.7 % (3.8-10.2); NEUT % 73.9 % (42.8-82.8); PLATELET COUNT 227 K/MM3 (134-434); RBC 3.65 M/mm3 (4.00-5.60); WHITE BLOOD COUNT 8.7 K/mm3 (4.0-10.0)
[2017-11-16 07:17] LABS: CHLORIDE 106 mmol/L (98-107); POTASSIUM 4.8 mmol/L (3.5-5.1); SODIUM 140 mmol/L (136-145)
[2017-11-16 07:22] LABS: ALBUMIN 2.7 g/dl (3.4-5.0); ALK PHOS 139 U/L (45-117); ANION GAP 5 (8-16); BILIRUBIN,TOTAL 0.4 mg/dL (0.2-1.0); BLOOD UREA NITROGEN 25 mg/dL (7-18); CALCIUM 8.1 mg/dL (8.5-10.1); CO2 29 mmol/L (21-32); CREATININE 0.6 mg/dL (0.7-1.3); GLUCOSE,RANDOM 84 mg/dL (74-106); MAGNESIUM 2.2 mg/dL (1.8-2.4); SGOT/AST 53 U/L (15-37); SGPT/ALT 35 U/L (12-78); TOT PROT 6.5 g/dl (6.4-8.2)
[2017-11-16] MEDS: DOCUSATE SODIUM 100 MG CAPSULE (FP) PO SCH ×3 (07:32→21:26)
[2017-11-16] MEDS: HEPARIN NA (PORCINE) 5,000 UNITS/ML 1ML VIAL SQ SCH ×3 (07:32→21:27)
--- NOTE | 2017-11-16 09:57 | EKG ---
Test Reason : Blood Pressure : / mmHG Vent. Rate : 083 BPM Atrial Rate : 083 BPM P-R Int : 184 ms QRS Dur : 066 ms QT Int : 342 ms P-R-T Axes : 069 060 082 degrees QTc Int : 401 ms POOR DATA QUALITY, INTERPRETATION MAY BE ADVERSELY AFFECTED NORMAL SINUS RHYTHM NORMAL ECG WHEN COMPARED WITH ECG OF 16-NOV-2017 05:03, QT HAS LENGTHENED Confirmed by MD Patrick, Torito ([id number]) on 11/16/2017 9:57:45 AM Referred By: ALYSIA Confirmed By:Torito Nguyen MD
--- NOTE | 2017-11-16 09:58 | EKG ---
Test Reason : Blood Pressure : / mmHG Vent. Rate : 142 BPM Atrial Rate : 115 BPM P-R Int : 000 ms QRS Dur : 074 ms QT Int : 284 ms P-R-T Axes : 000 068 091 degrees QTc Int : 436 ms POOR DATA QUALITY, INTERPRETATION MAY BE ADVERSELY AFFECTED SUPRAVENTRICULAR TACHYCARDIA NONSPECIFIC ST ABNORMALITY ABNORMAL ECG Confirmed by MD Patrick, Torito ([id number]) on 11/16/2017 9:58:23 AM Referred By: Confirmed By:Torito Nguyen MD
--- NOTE | 2017-11-16 11:11 | PN ---
Progress Note (short form) - Note Progress Note: Chief Complaint: Events noted, notes reviewed, complaining of left hip pain, denies any chest pain or dyspnea History of Present Illness: Seen and examined on telemetry. Full consult dictated Echocardiography today revealed normal LV size and function, AVS, dense MAC, mild MR, trace to mild TR with RVSP 32 mmHg - Current Medication List Current Medications: Current Medications Acetaminophen (Tylenol -) 650 mg PO Q6H PRN PRN Reason: PAIN LEVEL 4 - 6 Last Admin: 11/15/17 06:36 Dose: 650 mg Docusate Sodium (Colace -) 100 mg PO TID [facility] Last Admin: 11/16/17 07:32 Dose: 100 mg Heparin Sodium (Porcine) (Heparin -) 5,000 unit SQ TID [facility] Last Admin: 11/16/17 07:32 Dose: 5,000 unit Lidocaine (Lidoderm Patch -) 1 patch TP DAILY [facility] Last Admin: 11/15/17 09:24 Dose: 1 patch Miscellaneous (Lidoderm Patch Removal) 1 each MC DAILY@2200 [facility] Last Admin: 11/15/17 21:17 Dose: 1 each Morphine Sulfate (Morphine Sulfate) 2 mg IVPUSH Q4H PRN PRN Reason: PAIN LEVEL 7 - 10 Review of Systems: Constitutional: Denies fever or chills Head and Neck: Denies Headaches, photophobia or blurring of vision Respiratory: Denies cough or sputum production Cardiovascular: As noted above Gastrointestinal: Denies nausea, vomiting, diarrhea or abdominal discomfort Genitourinary: Denies frequency, hesitancy or urgency Musculoskeletal: As noted above Endocrine: No symptoms reported - Objective Vital Signs: Last Vital Signs Temp Pulse Resp BP Pulse Ox 98.0 F 86 20 111/61 96 11/16/17 06:01 11/16/17 06:01 11/16/17 06:01 11/16/17 06:01 11/14/17 21:00 Intake & Output 11/13/17 11/14/17 11/15/17 11/16/17 23:59 23:59 23:59 23:59 Intake Total 250 700 925 Output Total 1700 1900 1800 800 Balance -1450 -1200 -875 -800 Weight 98 lb 14 oz HEENT: Atraumatic, REID, EOMI Neck: Supple Negative JVD No Bruit Cardiovascular: S1 S2 Regular Rate and Rhythm Grade 1/6 LANETTE Respiratory: CTA Bilaterally Gastrointestinal: Soft Benign Normal Bowel Sounds Ext: Negative Edema Labs: CBC, BMP 11/16/17 06:28 11/16/17 06:28 Hepatic Panel Total Bilirubin 0.4 mg/dL (0.2-1.0) D 11/16/17 06:28 AST 53 U/L (15-37) H D 11/16/17 06:28 ALT 35 U/L (12-78) D 11/16/17 06:28 Alkaline Phosphatase 139 U/L (45-117) H D 11/16/17 06:28 Albumin 2.7 g/dl (3.4-5.0) L 11/16/17 06:28 INR, PTT INR 1.10 (0.82-1.09) 11/12/17 12:00 Assessment/Plan 1. 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 Mechanical fall post left inter-trochanteric fracture, declining surgical intervention 3. Pre-renal azotemia PLAN: 1. Recommend initiating B-Jose therapy with caution 2. Recommend ASA therapy, pending final decision regarding surgical intervention 3. Patient was advised that there are no absolute contraindications in proceeding with planned intervention (if patient is agreeable) considering that there is no evidence of ACS and/or de-compensated congestive heart failure and/ or malignant ventricular arrhythmia Blanca Allen MD
[2017-11-16] MEDS: LIDOCAINE 5% TOPICAL PATCH TP SCH (11:20)
--- NOTE | 2017-11-16 12:11 | PN ---
Progress Note (short form) - Note Progress Note: Ethics Patient with fall at home sustaining comminuted hip fracture for which surgery has been advised but the patient is continuing to refuse because of anesthesia fears and his age. Patient lives alone in a apartment on the first floor but there are steps to get into the building. He has a home child support case officer and home care manager rn who have been notified of his admission. The medical team has called for Psychiatry evaluation and LANGUAGE THERAPIST at first documented poor medical decision making but returned with Greek interpretation and deemed the patient has the medical capacity to make this decision. As the patient was already using a rolling walker at home and has a previous history of hip fracture, with the current finding of a comminuted fracture of the hip neck, it would seem unlikely he would even walk again without surgery. Also of note is the fact that with his advanced age of 87 years there may be surgical and anesthesia risks from a surgical procedure further amplified by his Acute SVT diagnosis today. Please note that even if he were considered not medically competent to make this decision he cannot be forced to undergo surgery if he continues to refuse surgery without a court order. I would have our social service attempt on their own to see if there are any family members to contact. One contact from the outside was not a working phone number. Upon my questioning him I am not certain if indeed he has had a or children.
--- NOTE | 2017-11-16 13:12 | CONS ---
DATE OF CONSULTATION: 11/16/2017 REQUESTING PHYSICIAN: Hospitalist. CHIEF COMPLAINT: Tachycardia, cardiovascular evaluation. History was obtained from the patient, an 87-year-old male of descent, with no significant past medical history, who denied hypertensive cardiovascular disease, diabetes mellitus, hypercholesterolemia, who was admitted to [facility] after sustaining a fall and was noted to have fracture of left femur; for which, surgical intervention was recommended but has not been performed as of yet. Patient this a.m. was noted to have tachycardia on physical examination. At which point, an electrocardiogram was performed which revealed evidence of supraventricular tachycardia that terminated post adenosine therapy administration. Patient had reported prior history of palpitations that failed to terminate. Patient denied any associated chest discomfort. Patient denied any dyspnea, orthopnea, paroxysmal nocturnal dyspnea, or peripheral edema. Patient denied any fatigue or tiredness. PAST MEDICAL HISTORY: None reported. PAST SURGICAL HISTORY: None. SOCIAL HISTORY: Nonsmoker. FAMILY HISTORY: No family history of coronary artery disease. ALLERGIES: None reported. MEDICAL THERAPY: Currently includes acetaminophen 650 mg every 6 hours as needed, Colace 100 mg 3 times a day, subcutaneous heparin 5000 units 3 times a day, lidocaine patch once daily, and morphine sulfate 2 mg as needed every 4 hours. REVIEW OF SYSTEMS: Head and Neck: Denies headache, photophobia, blurring of vision. Respiratory: No cough or sputum production. Cardiovascular: As noted above. Gastrointestinal: Denies nausea, vomiting, diarrhea, abdominal discomfort. Genitourinary: No frequency, urgency, hesitancy. Musculoskeletal: Left hip discomfort. Endocrine: No symptoms reported. PHYSICAL EXAMINATION: Vital Signs: Blood pressure 111/61 mmHg. Pulse rate is 86 beats per minute. Head and Neck: Pupils equal and reactive to light and accommodation. Extraocular muscles are intact. Anicteric sclerae. Negative JVD. No bruit appreciated. Chest: Clear to auscultation and percussion. Cardiovascular: S1 and S2 regular. Grade 1/6 systolic ejection murmur. No clicks or gallops. Abdomen: Soft, benign. Normoactive bowel sounds. Extremities: Negative edema. Intact distal pulses. No calf tenderness. Electrocardiogram with the above-noted arrhythmia, revealed supraventricular tachycardia with evidence of VA conduction suggestive of AV fito re-entrant tachycardia. Post-termination, electrocardiogram reveals sinus rhythm with nonspecific T-wave abnormality. CBC revealed white cell count 8.7, hemoglobin 12.4, platelet count 227. Basic metabolic profile revealed sodium 140, potassium 4.8, BUN 25, creatinine 0.6, glucose 84. AST 53. ASSESSMENT: 1. 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 Other differential diagnosis includes atypical atrial flutter/atrial tachycardia unlikely. 2. Mechanical fall post left intertrochanteric fracture, currently declining surgical intervention. 3. Prerenal azotemia. PLAN: 1. Recommend initiation of beta-ulysses therapy with caution. 2. Recommend aspirin therapy pending final decision regarding surgical intervention. 3. Patient was advised that there are no absolute contraindications in proceeding with planned intervention if patient is agreeable, considering that there is no clinical evidence of acute coronary syndrome and/or decompensated congestive heart failure and/or malignant ventricular arrhythmia. Thank you for the kind referral. MIA GREWAL M.D. [id number]
--- NOTE | 2017-11-16 15:26 | PN ---
Progress Note (short form) - Note Progress Note: Pt seen and examined. He states his left hip and leg are feeling better, less pain. He states he was able to stand today with assistance. LLE is NVI, good ROM at the left knee, ankle, foot, toes. Review of xrays show a displaced Left hip/femur IT fx We discussed surgery again. Again he is refusing surgery. He understands the risks of not having surgery. Plan Will follow SCDs Anticoagulation
--- NOTE | 2017-11-16 16:24 | PN ---
Physical Exam: SUBJECTIVE: Patient seen and examined. Still refusing surgery is open to rehab, has no acute sob or chest pain, hip tenderness when he moves. OBJECTIVE: Vital Signs Period Temp Pulse Resp BP Sys/Iglesias Pulse Ox Last 24 Hr 97.6 F-99.1 F 78-147 19-21 105-120/51-67 PE Neuro: alert, awake, cn 2-12intact Pulm: CTAB CV: s1 s2 rrr 2/6 murmur Abd: s nd nt +bs Ext: L hip tenderness, no le edema MSK: thin, protruding collar bones Laboratory Results - last 24 hr 11/16/17 11/16/17 06:28 06:28 WBC 8.7 D RBC 3.65 L Hgb 12.4 Hct 36.4 MCV 99.8 H MCH 34.0 H MCHC 34.1 RDW 15.0 Plt Count 227 MPV 8.3 Neutrophils % 73.9 Lymphocytes % 17.5 Monocytes % 6.7 Eosinophils % 1.3 Basophils % 0.6 Sodium 140 Potassium 4.8 Chloride 106 Carbon Dioxide 29 Anion Gap 5 L BUN 25 H D Creatinine 0.6 L Creat Clearance w eGFR > 60 Random Glucose 84 Calcium 8.1 L Magnesium 2.2 Total Bilirubin 0.4 D AST 53 H D ALT 35 D Alkaline Phosphatase 139 H D Total Protein 6.5 Albumin 2.7 L Active Medications Generic Name Dose Route Start Last Admin Trade Name Freq PRN Reason Stop Dose Admin Acetaminophen 650 mg 11/12/17 16:59 11/15/17 06:36 Tylenol - PO 650 mg Q6H PRN Administration PAIN LEVEL 4 - 6 Docusate Sodium 100 mg 11/12/17 22:00 11/16/17 14:49 Colace - PO 100 mg TID BALJINDER Administration Heparin Sodium (Porcine) 5,000 unit 11/15/17 22:00 11/16/17 14:48 Heparin - SQ 5,000 unit TID BALJINDER Administration Lidocaine 1 patch 11/13/17 11:45 11/16/17 11:20 Lidoderm Patch - TP 1 patch DAILY BALJINDER Administration Miscellaneous 1 each 11/13/17 22:00 11/15/17 21:17 Lidoderm Patch Removal MC 1 each DAILY@2200 BALJINDER Administration Morphine Sulfate 2 mg 11/12/17 16:24 Morphine Sulfate IVPUSH Q4H PRN PAIN LEVEL 7 - 10 Imaging: Left Hip/xray: Comminuted left femoral fracture with various deformities Assessment: 87 year old with no pmhx, admitted after witnessed mechanical fall on 11/05 presented with worsening hip pain. Plan: 1. PSVT - In sinus - Start lopressor 25mg daily - Start ASA daily, no hip surgery 2. Left hip fx - Pt refusing sx - For rehab tomorrow - Start ASA - Ethic note appreciated 3. DVT - Heparin sq Visit type - Emergency Visit Emergency Visit: Yes ED Registration Date: 11/12/17 Care time: The patient presented to the Emergency Department on the above date and was hospitalized for further evaluation of their emergent condition. - New Patient This patient is new to me today: Yes Date on this admission: 11/16/17 - Critical Care Critical Care patient: No
[2017-11-16] MEDS: METOPROLOL TARTRATE 25 MG TABLET (FP) PO SCH (17:15)
[2017-11-16] MEDS: LIDOCAINE PATCH REMOVAL MC SCH (22:13)
[2017-11-17 05:32] VITALS: TEMP 98.2
[2017-11-17] MEDS: DOCUSATE SODIUM 100 MG CAPSULE (FP) PO SCH (06:04)
[2017-11-17] MEDS: HEPARIN NA (PORCINE) 5,000 UNITS/ML 1ML VIAL SQ SCH (06:08)
[2017-11-17 07:59] VITALS: BP 107/61; PULSE 61
[2017-11-17] MEDS: LIDOCAINE 5% TOPICAL PATCH TP SCH (10:00)
[2017-11-17] MEDS: METOPROLOL TARTRATE 25 MG TABLET (FP) PO SCH (10:00)
--- NOTE | 2017-11-17 10:15 | PN ---
Progress Note, Physician History of Present Illness: Left hip discomfort improving, no further recurrence of PSVT. - Current Medication List Current Medications: Active Medications Acetaminophen (Tylenol -) 650 mg PO Q6H PRN PRN Reason: PAIN LEVEL 4 - 6 Last Admin: 11/15/17 06:36 Dose: 650 mg Docusate Sodium (Colace -) 100 mg PO TID [facility] Last Admin: 11/17/17 06:04 Dose: 100 mg Heparin Sodium (Porcine) (Heparin -) 5,000 unit SQ TID [facility] Last Admin: 11/17/17 06:08 Dose: 5,000 unit Lidocaine (Lidoderm Patch -) 1 patch TP DAILY [facility] Last Admin: 11/17/17 10:00 Dose: 1 patch Metoprolol Tartrate (Lopressor -) 25 mg PO DAILY [facility] Last Admin: 11/17/17 10:00 Dose: 25 mg Miscellaneous (Lidoderm Patch Removal) 1 each MC DAILY@2200 [facility] Last Admin: 11/16/17 22:13 Dose: 1 each Morphine Sulfate (Morphine Sulfate) 2 mg IVPUSH Q4H PRN PRN Reason: PAIN LEVEL 7 - 10 - Objective Vital Signs: Vital Signs Temperature 98.2 F 11/17/17 07:53 Pulse Rate 61 11/17/17 07:53 Respiratory Rate 20 11/17/17 07:59 Blood Pressure 107/61 11/17/17 07:53 O2 Sat by Pulse Oximetry (%) 96 11/17/17 07:59 Constitutional: Yes: No Distress, Calm, Thin Neck: Yes: Supple Cardiovascular: Yes: Regular Rate and Rhythm Respiratory: Yes: Regular, Diminished Gastrointestinal: Yes: Normal Bowel Sounds, Soft Edema: No Labs: CBC, BMP 11/16/17 06:28 11/16/17 06:28 INR, PTT INR 1.10 (0.82-1.09) 11/12/17 12:00 - ....Imaging EKG: Report Reviewed (Tele: NSR without recurrence PSVT) Problem List - Problems (1) Paroxysmal SVT (supraventricular tachycardia) Code(s): I47.1 - SUPRAVENTRICULAR TACHYCARDIA (2) Closed left hip fracture Code(s): S72.002A - FRACTURE OF UNSP PART OF NECK OF LEFT FEMUR, INIT Qualifiers: Encounter type: initial encounter Qualified Code(s): S72.002A - Fracture of unspecified part of neck of left femur, initial encounter for closed fracture (3) Prerenal azotemia Code(s): R79.89 - OTHER SPECIFIED ABNORMAL FINDINGS OF BLOOD CHEMISTRY Assessment/Plan 11/16/2017 Echocardiography revealed normal LV size and function, AVS, dense MAC , mild MR, trace to mild TR with RVSP 32 mmHg 1. 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 Mechanical fall post left hip/femur intertrochanteric fracture, declining surgical intervention 3. Pre-renal azotemia PLAN: 1. Started metoprolol 25 qd 2. Start ASA 81 qd as patient declines surgical intervention, analgesia as needed, DVT prophylaxis 3. Patient was advised that there are no absolute contraindications in proceeding with planned intervention (if patient is agreeable) considering that there is no evidence of ACS and/or de-compensated congestive heart failure and/ or malignant ventricular arrhythmia 4. PT, WBAT, SNF
--- NOTE | 2017-11-17 10:42 | DS ---
Physical Exam: SUBJECTIVE: Patient seen and examined. He has no acute complaints, denies palpitations. Would like help getting dressed OBJECTIVE: Vital Signs Period Temp Pulse Resp BP Sys/Iglesias Pulse Ox Last 24 Hr 98 F-98.2 F 61-81 18-20 104-126/60-63 96-96 PE Neuro: alert, awake, cn 2-12intact Pulm: CTAB CV: s1 s2 rrr 2/6 murmur Abd: s nd nt +bs Ext: L hip tenderness, no le edema MSK: thin, protruding collar bones HOSPITAL COURSE: Date of Admission:11/12/17 Date of Discharge: 11/17/17 Minutes to complete discharge: 37 Discharge Summary Reason For Visit: CLOSED FRACTURE OF LEFT HIP Current Active Problems Closed left hip fracture (Acute) Paroxysmal SVT (supraventricular tachycardia) (Acute) Prerenal azotemia (Acute) Hospital Course: Initial Hospital Course: Briefly, this 87 year old male with no significant PMH presented for evaluation s/p witnessed fall 1 week ago. The patient stated he had a lot of work being done in his apartment and he slipped on dust last Wednesday (1 week ago), witnessed by the home health aide, landing on his left hip. The patient denied any head strike/injury or loss of consciousness, however he has not been able to ambulate since the fall with left hip pain when he is moving. Imaging: Left Hip/xray: Comminuted left femoral fracture with various deformities Subsequent Hospital Course/Progress Note/DC Summary: Assessment: 87 year old with no pmhx, admitted after witnessed mechanical fall on 11/05 presented with worsening hip pain. Plan: 1. PSVT - In sinus - Start toprol 25mg daily - Start ASA daily, no hip surgery 2. Left hip fx - Pt refusing sx - For rehab tomorrow Dispo: - For rehab today [facility] Lian Owens, social worker delinquency prevention [phone] Ritika, Primary nurse at [facility] [phone]. Condition: Stable - Instructions Diet, Activity, Other Instructions: Please return to the ED for any new, persistent, or worsening symptoms. Follow up with your PCP in 1 week Take new medications as directed Continue physical therapy Referrals: Blanca Allen MD [Staff Physician] - Roland Johns MD [Primary Care Provider] - Disposition: LONG-TERM FACILITY - Home Medications Comprehensive Discharge Medication List: Ambulatory Orders Aspirin [ASA -] 81 mg PO DAILY #30 tab.chew 11/17/17 Lidocaine 5% Patch [Lidoderm -] 1 patch TP DAILY #30 patch 11/17/17 Metoprolol Succinate [Toprol XL -] 25 mg PO DAILY #30 tab.sr.24h 11/17/17 This patient is new to me today: No Emergency Visit: Yes ED Registration Date: 11/12/17 Care time: The patient presented to the Emergency Department on the above date and was hospitalized for further evaluation of their emergent condition. Critical Care patient: No - Discharge Referral Referred to [facility] No
[2017-11-18] MEDS ORDERED: metoPROLOL SUCCINATE 25 MG TAB.SR.24H (FP) PO SCH (10:00)
== END 2017-11-17 12:28 | DRG 535 ==
LOC: JER 11:29 → JERBED 14:28 → J6S 17:48 → J4W 11-16 07:18
PROVIDERS: ADMIT Internal Medicine; ATTEND Nurse Practitioner Acute Care
DX: S72.142A Displaced intertrochanteric fracture of left femur, initial encounter for closed fracture (principal); E43 Unspecified severe protein-calorie malnutrition; I47.1 Supraventricular tachycardia; R64 Cachexia; Z68.1 Body mass index [BMI] 19.9 or less, adult; W19.XXXA Unspecified fall, initial encounter; Y93.9 Activity, unspecified; Y92.89 Other specified places as the place of occurrence of the external cause; Y99.9 Unspecified external cause status; R79.89 Other specified abnormal findings of blood chemistry
CPT/HCPCS: 36415; 70450-TC; 71045-TC-FY; 73523-TC-FY; 80053; 80061; 81003; 82550; 82553; 83036; 83721; 83735; 84484; 85025; 85027; 85610; 86850; 86900; 86901; 87040; 87086; 93005; 93010; 93306-TC; 97116-GP; 97161-GP; 99282-25; J1644; J7030